=== PATIENT | female | born 1980 | race African-American/Black ===

== ENCOUNTER 2017-08-20 14:29 | Emergency (ER) | payer OTHER ==
[~2017-08-20] VITALS: Ht 157.5 cm; Wt 73.7 kg
[~2017-08-20 14:29] MED LIST: CLARITIN10 M3 PO; DEPO-PROVERA; LEVONORG-ETH E1 EACH PO; NOHOMEMEDS; PROMETHAZINE HC25 M1 PO; SINGULAIR10 MG PO; ZYRTEC10 M2 PO
[2017-08-20 17:05] VITALS: BP 125/87
== END 2017-08-20 17:06 | disposition home or self-care (01) ==
LOC: EME 14:29
DX: M79.89 Other specified soft tissue disorders (principal); F17.200 Nicotine dependence, unspecified, uncomplicated; Z90.89 Acquired absence of other organs
CPT/HCPCS: 71046; 99281; 99283

== ENCOUNTER 2017-11-22 11:47 | Emergency (ER) | payer OTHER ==
[~2017-11-22] VITALS: Ht 157.5 cm; Wt 67.6 kg
[2017-11-22 12:35] LABS: HEMATOCRIT 39.9 % (36.0-46.0); HEMOGLOBIN 14.2 G/DL (11.9-15.5); MCH 30.9 PG (29.0-34.0); MCHC 35.6 G/DL (30.0-36.0); MCV 86.7 FL (83-99); PLATELET COUNT 233 K/uL (156-360); RBC DIS.WIDTH-CV 13.9 % (11.8-14.6); RBC DIS.WIDTH-SD 44.5 % (39-53); WHITE BLOOD COUNT 7.2 K/uL (4.1-10.2)
[2017-11-22 12:44] LABS: ALBUMIN 4.3 g/dL (3.2-4.8); CHLORIDE 109 mEq/L (99-109); POTASSIUM 4.1 mEq/L (3.7-5.4); SODIUM 140 mEq/L (136-147)
[2017-11-22 12:46] LABS: GLUCOSE 98 mg/dL (70-99)
[2017-11-22 12:47] LABS: TOTAL PROTEIN 8.3 g/dL (6.4-8.3)
[2017-11-22 12:48] LABS: TOTAL BILIRUBIN 0.6 mg/dL (0.0-1.0)
[2017-11-22 12:50] LABS: ALKALINE PHOSPHATASE 78 IU/L (3-129); CREATININE 1.2 mg/dL (0.6-1.3); GFR ESTIMATE (CALCULATED) > 59 mL/min/
[2017-11-22 12:51] LABS: UREA NITROGEN (BUN) 15 mg/dL (9-23)
[2017-11-22 12:52] LABS: AST (GOT) 61 IU/L (2-34)
[2017-11-22 12:53] LABS: ALT (GPT) 78 IU/L (3-49)
[2017-11-22 12:59] LABS: QUANTITATIVE HCG < 4.0 MIU/ML
[2017-11-22 14:08] LABS: APPEARANCE CLEAR ((CLEAR)); BILIRUBIN NEGATIVE; BLOOD NEGATIVE; COLOR AMBER ((YELLOW)); GLUCOSE (STRIP) NEGATIVE; KETONES NEGATIVE; LEUKOCYTES NEGATIVE; NITRITE NEGATIVE; PROTEIN (STRIP) 100; SPECIFIC GRAVITY 1.016 (1.000-1.030); UROBILINOGEN 0.2 MG/DL (0.2-1.0)
[2017-11-22 14:13] LABS: BACTERIA RARE /HPF; EPITHELIAL CELLS RARE /HPF; MUCUS 1+ /LPF; RED BLOOD CELLS 0-5 /HPF (0-5); UCUL ADDED? NO; WHITE BLOOD CELLS 0-5 /HPF (0-5)
[2017-11-22 14:13] LABS: LIPASE 11 U/L (1.0-51.0)
[2017-11-22 14:37] LABS: MONOSPOT (MONONUCLEOSIS SEROL) NEGATIVE
[2017-11-22 16:44] LABS: TROP-I INTERPRETATION NEGATIVE; TROPONIN-I < 0.01 ng/mL (0.0-0.30)
[2017-11-22 17:26] LABS: TROP-I INTERPRETATION NEGATIVE; TROPONIN-I < 0.01 ng/mL (0.0-0.30)
[2017-11-22 17:31] VITALS: BP 112/72
== END 2017-11-22 18:02 | disposition home or self-care (01) ==
LOC: RME 11:47 → EME 11:47 → RME 18:02
PROVIDERS: Physician Assistant Medical
DX: R10.13 Epigastric pain (principal); J02.9 Acute pharyngitis, unspecified; F17.200 Nicotine dependence, unspecified, uncomplicated
CPT/HCPCS: 74018; 76705; 80053; 81003; 83690; 84484; 84702; 85027; 86308; 87651 90; 93005; 99281; 99284